=== PATIENT | male | born 1990 | race Two or more races ===

== ENCOUNTER 2024-03-23 02:10 | Emergency (ER) | payer MEDICAID, SELFPAY ==
[2024-03-23 02:11] VITALS: BMI 28.1
[2024-03-23 02:17] VITALS: BP 114/72; PULSE 101; RESP 18; TEMP 36.4; O2SAT 100
--- NOTE | 2024-03-23 02:34 | EDNOTE_ITS ---
<Statement entered by Na Mead MD - 03/31/24 16:32> As co-signing physician, I was present and available for consult prn. I concur with the plan and care as documented by the midlevel provider. ED Skin Abcess FB-RME/HPI General Chief complaint: Skin/Abscess/Foreign Body Stated complaint: SPIDER BITE TO BOTH ARMS Time Seen by Provider: 03/23/24 02:34 Source: patient Arrival date/time: 03/23/24 02:10 33-year-old male presents emergency department complaining of boil to right lateral forearm and left forearm after having a spider bite. Patient denies chills, fevers, n/v, iv drug use, or any other associated symptoms. Mode of arrival: ambulatory Limitations: no limitations Related Data Previous Rx's ?Medication ?Instructions ?Recorded clindamycin HCl 150 mg capsule 450 mg (3 x 150 mg) PO TID 7 days 03/23/24 #63 caps Allergies Allergy/AdvReac Type Severity Reaction Status Date / Time NKA* Allergy Uncoded 03/15/14 16:12 Review of Systems Review of Systems Systems Reviewed: All systems reviewed, normal except as documented Constitutional Constitutional: Reports system reviewed and no additional complaints, except as documented, Denies body ache(s), Denies chills and Denies fever(s) Eyes Eyes: Reports system reviewed and no additional complaints, except as documented and Denies change in vision ENT Ears, Nose, Mouth, and Throat: Reports system reviewed and no additional complaints, except as documented, Denies disequilibrium, Denies dizziness, Denies sore throat and Denies vertigo Cardiovascular Cardiovascular: Reports system reviewed and no additional complaints, except as documented, Denies chest pain and Denies dyspnea Respiratory Respiratory: Reports system reviewed and no additional complaints, except as documented, Denies chest congestion, Denies cough and Denies dyspnea Gastrointestinal Gastrointestinal: Reports system reviewed and no additional complaints, except as documented, Denies abdominal pain, Denies nausea and Denies vomiting Musculoskeletal Musculoskeletal: Reports system reviewed and no additional complaints, except as documented, Denies abnormal gait and Denies arthralgias Integumentary/Breasts Skin/Breast: Reports system reviewed and no additional complaints, except as documented, Reports erythema, Denies rash and Reports wounds Neurologic Neurologic: Reports system reviewed and no additional complaints, except as documented, Denies abnormal gait, Denies disequilibrium, Denies dizziness and Denies vertigo Past Medical History Social History SMOKING STATUS: Current every day smoker ED Exam General Limitations: Present no limitations General appearance: Present alert and in no apparent distress Head Head exam: Present atraumatic Eye Eye exam: Present normal appearance, PERRL and EOMI ENT ENT exam: Present normal exam, normal oropharynx and mucous membranes moist Neck Neck exam: Present normal inspection, full ROM and trachea midline Chest Chest inspection: Present normal inspection and symmetric chest wall rise Respiratory Respiratory exam: Present normal lung sounds bilaterally Cardiovascular Cardiovascular exam: Present regular rate, normal rhythm and normal heart sounds Abdominal Exam Abdominal exam: Present soft and normal bowel sounds Extremities Exam Extremities exam: Present normal inspection and full ROM Back Exam Back exam: Present normal inspection and full ROM Neurological Exam Neurological exam: Present alert, oriented X3 and CN II-XII intact Psychiatric Psychiatric exam: Present normal affect and normal mood Skin Skin exam: Present warm, dry and erythema Expanded Skin Exam Type of lesion: Present abscess Distribution: Present LUE and RUE Description: Present erythematous and swelling; Absent discharge Course Quality Measures none Orders Category Date Time Status cefTRIAXone [Rocephin] 1,000 mg Med 03/23/24 02:34 Discontinued Lidocaine 1% 20 ml [Xylocaine 1% 20 ML] 2.1 ml IM X1 Vital Signs Vital signs: Vital Signs Temperature 97.5 F 03/23/24 02:17 Pulse Rate 101 H 03/23/24 02:17 Respiratory Rate 18 03/23/24 02:17 Blood Pressure 114/72 03/23/24 02:17 Pulse Oximetry (%) 100 03/23/24 02:17 Oxygen Delivery Method Room Air 03/23/24 02:17 100% RA WNL. Skin / Abscess / Foreign Body MDM Narrative MDM Narrative:: 33-year-old male presents emergency department complaining of boil to right lateral forearm and left forearm after having a spider bite. Patient denies chills, fevers, n/v, iv drug use, or any other associated symptoms. Patient appears non toxic and is hemodynamically stable. Boil to bilateral forearm erythematous and hard to palpation to do not appear fluid filled. No drainage observed. IM Rocephin given and discharged on oral clindamycin with strict instruction for close follow up with primary. Instructed to return to ER for any worsening symptoms. Patient data External records reviewed:: [facility] previous records Clinical information provided by:: patient Social determinants that could affect healthcare access:: none Patient has the following chronic illnesses:: see chart How is presenting disease/condition affected by chronic disease/condition?: uneffected by Evaluation data The following diagnostics were reviewed and interpreted by me:: other (specify) (n/a) Lab and/or radiology exams considered but not ordered:: n/a Interpretation Summary: n/a Medications / Prescriptions Medications or Prescriptions considered but not ordered:: ordered Medication administrations:: Medication Administration History Discontinued Medications Ceftriaxone Sodium 1,000 mg/ (Lidocaine HCl 2.1 ml) 0 mg IM X1 ONE Stop: 03/23/24 02:35 Last Admin: 03/23/24 02:55 Dose: 2.1 mg Documented By: SE given Consultations Consultation(s) initiated? (list below): No Diagnosis Skin/Abscess Differential Diagnosis: abscess of skin or subcutaneous tissue and cellulitis Most likely diagnosis given after review of the tests above:: cellulitis Admission Indicated Admission indicated?: not indicated Admission Request Was there a request for admission?: No Disposition Plan Disposition Plan: Discharge Discharge Attestation Discharge Attestation: The patient and all family members were given an opportunity to ask questions and understood the discharge instructions. Discharge instructions specifically effects, indications for sooner follow up or return to the emergency department, and the expected course of current diagnosis. Patient condition: Stable Discharge Plan Plan Patient Disposition: HOME (Self Care) Disposition Comment: Stable Prescriptions/Referrals Prescriptions/Med Rec: New clindamycin HCl 150 mg capsule 450 mg PO TID 7 Days Qty: 63 0RF Problem List Clinical Impression: Cellulitis Patient/Caregiver Discharge Instructions Discharge Activity: activity as tolerated Education Materials: Discharge Instructions for Cellulitis, ED Cellulitis Additional Instructions: Take antibiotics as prescribed. Close follow-up with primary care provider in 24 to 48 hours. Return to the emergency department for any worsening symptoms or as needed. Print Language: Kinyarwanda Stand Alone Forms: Sushma Award Info., Patient Portal Info Letter PA/POULTRY VETERINARIAN Supervising Physician PA/POULTRY VETERINARIAN Supervising Physician: Dr. Mead
[2024-03-23] MEDS: cefTRIAXone 1,000 MG, LIDOCAINE 1% 20 ML 2.1 ML IM (02:55)
== END 2024-03-23 03:10 | disposition home or self-care (01) ==
LOC: SERX 02:45
PROVIDERS: Emergency Provider Emergency Medicine
DX: T63.301A Toxic effect of unspecified spider venom, accidental (unintentional), initial encounter (principal); L03.113 Cellulitis of right upper limb
CPT/HCPCS: 96372; 99283; J0696; J3490